=== PATIENT | female | born 1995 | race Caucasian/White ===

== ENCOUNTER 2019-05-22 06:57 | Emergency (ER) | payer OTHER ==
--- NOTE | 2019-05-22 07:10 | ED ---
GI/ HPI - HPI Summary HPI Summary: 23-year-old female with no significant past medical history LMP "mid April and regular" not on control and is sexually active with no new partners presents to the emergency department today complaining of vaginal bleeding which she attributes to a "cut in my vagina from intercourse". She states she believes this clot arose from intercourse approximately 3 days ago and associated with abdominal pain and vaginal bleeding which began yesterday. Patient states she was "spotting" yesterday and then woke up this morning with a larger amount of blood on her bed sheets. It is noted in triage note that patient endorsed loss of feeling to her seeing calves however patient denies this at this time. Patient otherwise feels well and denies fever, chest pain, shortness of breath, pain with urination, increased frequency, increased urgency , rash. Patient denies past medical history of ovarian cysts or torsion, PID. Family history and surgical history noncontributory. - History of Current Complaint Chief Complaint: EDVaginalBleeding Time Seen by Provider: 05/22/19 07:09 Stated Complaint: LAC PER PT Hx Obtained From: Patient Hx Last Menstrual Period: 01/18/16 Onset/Duration: Started Days Ago Timing: Constant Severity: Moderate Current Severity: Moderate Vaginal Bleeding Description: Bright Red Pain Intensity: 10 Location of Pain: Suprapubic Additional Location for Females: Vulva Pain Characteristics: Tearing, Burning Associated Signs and Symptoms: Positive: Dyspureunia. Negative: Hematemesis, Back Pain, Pallor, Weakness, Syncope, External Hemorrhoid, Abdominal Pain, New Sexual Partner, Pale, UTI Symptoms Additional Signs & Symptoms: Positive: Genital Blisters, Vaginal Bleeding Aggravating Factor(s): Movement, Movement, Activity Alleviating Factor(s): Rest - Allergy/Home Medications Allergies/Adverse Reactions: Allergies Allergy/AdvReac Type Severity Reaction Status Date / Time No Known Allergies Allergy Verified 05/22/19 07:01 Home Medications: Home Medications NK [No Home Medications Reported] 05/22/19 [History Confirmed 05/22/19] PMH/Surg Hx/FS Hx/Imm Hx Endocrine/Hematology History: Denies: Hx Anticoagulant Therapy, Hx Blood Disorders, Hx Diabetes Cardiovascular History: Denies: Hx Angina Infectious Disease History: No Infectious Disease History: Denies: Traveled Outside the [place] in Last 30 Days - Family History Known Family History: Positive: None Family History: no known cardio-vascular issues in patient lineage - Social History Alcohol Use: None Substance Use Type: Reports: None Smoking Status (MU): Never Smoked Tobacco Review of Systems Constitutional: Negative Eyes: Negative ENT: Negative Cardiovascular: Negative Respiratory: Negative Positive: Abdominal Pain. Negative: Vomiting, Diarrhea, Nausea Positive: pain Musculoskeletal: Negative Positive: Rash Neurological: Negative Psychological: Normal All Other Systems Reviewed And Are Negative: Yes Physical Exam - Summary Physical Exam Summary: Inspection of the abdomen revealed no ecchymosis or tenderness with palpation. There is no peritoneal signs or guarding. Speculum exam was done with monik Sheldon RN. Inspection of the external genitalia shows ulceration without bleeding or discharge near the inferior aspect of the vulva with 2 small 3 mm in diameter ulcers midway up the labia. There is no evidence of vaginal wall laceration with speculum exam or cervical motion tenderness. There is considerable blood noted in the vaginal canal which appears to be coming from the cervix. During examination gonorrhea and chlamydia swabs were taken for testing. Patient tolerated the exam well without significant pain or tenderness. Triage Information Reviewed: Yes Vital Signs On Initial Exam: Initial Vitals Temp Pulse Resp BP Pulse Ox 98.4 F 106 20 141/78 98 05/22/19 06:58 05/22/19 06:58 05/22/19 06:58 05/22/19 06:58 05/22/19 06:58 Vital Signs Reviewed: Yes Appearance: Positive: Well-Appearing, No Pain Distress, Well-Nourished Skin: Positive: Warm, Skin Color Reflects Adequate Perfusion Eyes: Positive: EOMI, GIULIANA, Conjunctiva Clear ENT: Positive: Hearing grossly normal Respiratory/Lung Sounds: Positive: Clear to Auscultation, Breath Sounds Present Cardiovascular: Positive: RRR, S1, S2 Abdomen Description: Positive: Soft, Distended, Guarding Bowel Sounds: Positive: Present Pelvic Exam: Positive: No Cerv. Motion Tender, Active Bleeding, Blood, Lesions, Ulcers. Negative: Cervicitis, Discharge, Mass, Tender w/ Cervical Motion, Tender Adnexa, Tender Uterus Musculoskeletal: Positive: Strength/ROM Intact Neurological: Positive: Sensory/Motor Intact, Alert, Oriented to Person Place, Time, Normal Gait, Speech Normal Psychiatric: Positive: Normal, Affect/Mood Appropriate AVPU Assessment: Alert Procedures - Sedation Patient Received Moderate/Deep Sedation with Procedure: No Diagnostics - Vital Signs Vital Signs Temp Pulse Resp BP Pulse Ox 05/22/19 06:58 98.4 F 106 20 141/78 98 - Laboratory Result Diagrams: 05/22/19 07:31 05/22/19 07:31 Lab Statement: Any lab studies that have been ordered have been reviewed, and results considered in the medical decision making process. GIGU Course/Dx - Course Course Of Treatment: Patient was evaluated in the emergency department today for vaginal bleeding. Patient's exam her vitals are stable and she is afebrile with no evidence of hypovolemia. Pelvic exam chaperoned by ZAYDA Sheldon. And showed bleeding source to be from the uterus with no evidence of vaginal wall laceration. There was evidence of genital herpes on the labia during exam. Laboratory studies returned showing no evidence of anemia and no . Transvaginal ultrasound was done to evaluate ovarian pathology and returned within normal limits. Patient is likely experiencing menorrhagia. Patient was offered short course of control to decrease bleeding as well as acyclovir for possible genital herpes but declined both. Patient is to follow-up with her SECURITY POLICE OFFICER in 1-2 days for further evaluation. Patient discharged with outpatient follow-up. - Diagnoses Differential Diagnoses - Female: Cervicitis, Ectopic , Herpes Simplex, Ovarian Cyst, Ovarian Torsion, Pelvic Inflammatory Disease, Placenta Abruption, Placenta Previa, Threatened , Vaginitis Provider Diagnoses: Vaginal bleeding Discharge ED - Sign-Out/Discharge Documenting (check all that apply): Patient Departure - Discharge Plan Condition: Stable Disposition: HOME Patient Education Materials: Dysfunctional Uterine Bleeding (ED), Genital Herpes Simplex (ED) Referrals: Elsie Thomas MD [Medical Doctor] - 2 Days Non Staff,Doctor [Medical Doctor] - Additional Instructions: You were seen in the emergency department for vaginal bleeding and possible vaginal herpes. Please expect vaginal bleeding as this period resolves. Please return to the emergency department if you develop any new or worsening symptoms including a fever over 101, bleeding more than 1 pad an hour. Follow up with your OBGYN in 2 days for further evaluation and management. These is a possibility that you also have genital herpes, please follow up with your OBGYN for further evaluation for this problem as well. You are offered antiviral medication for this problem however you declined. You were also offered a short course course of control to decrease the bleeding however you declined this as well. Until this is evaluated further please refrain form sexual intercourse. - Billing Disposition and Condition Condition: STABLE Disposition: Home
[2019-05-22 07:52] LABS: ABS Eosinophils 0.1 10^3/ul (0-0.6); ABS Lymphocytes 0.8 10^3/ul (1.0-4.8); ABS Monocytes 0.9 10^3/ul (0-0.8); ABS Neutrophils 6.7 10^3/ul (1.5-7.7); Eosinophil % 0.7 %; Hematocrit 38 % (35-47); Hemoglobin 12.7 g/dL (12.0-16.0); Mean Corpuscular HGB Conc 34 g/dL (31-36); Mean Corpuscular Hemoglobin 29 pg (27-31); Mean Corpuscular Volume 85 fL (80-97); Platelet Count 176 10^3/uL (150-450); Red Blood Count 4.41 10^6 /uL (3.70-4.87); Red Cell Distribution Width 14 % (10-15); White Blood Count 8.5 10^3/uL (3.5-10.8)
[2019-05-22 07:54] LABS: Albumin 4.7 g/dL (3.2-5.2); Anion Gap 8 mmol/L (2-11); CO2 Carbon Dioxide 24 mmol/L (22-32); Calcium 9.4 mg/dL (8.6-10.3); Chloride 105 mmol/L (101-111); Potassium 3.7 mmol/L (3.5-5.0); Sodium 137 mmol/L (135-145)
[2019-05-22 08:00] LABS: ALT 9 U/L (7-52); AST 15 U/L (13-39); Albumin/Globulin Ratio 1.6 (1-3); Alkaline Phosphatase 38 U/L (34-104); BUN/Creatinine Ratio 10.3 (8-20); Blood Urea Nitrogen 9 mg/dL (6-24); EGFR African American 97.6 (>60); EGFR Non-African American 80.7 (>60); Globulin 2.9 g/dL (2-4); Glucose 96 mg/dL (70-100); Total Protein 7.6 g/dL (6.4-8.9)
[2019-05-22 08:06] LABS: HCG Pregnancy < 0.60 mIU/mL
[2019-05-22 08:35] LABS: HIV 4th Generation Nonreactive (Nonreactive)
[2019-05-22 08:38] LABS: Urine Appearance Cloudy; Urine Bilirubin Negative (Negative); Urine Blood 3+ (Negative); Urine Color Amber; Urine Glucose Negative (Negative); Urine Ketones Negative (Negative); Urine Nitrite Negative (Negative); Urine Protein 2+(100 mg/dL) (Negative); Urine Specific Gravity 1.026 (1.010-1.030); Urine Urobilinogen Negative (Negative)
[2019-05-22 08:40] LABS: Urine Bacteria Absent (Absent); Urine Red Blood Cell 3+(>10/hpf) (Absent); Urine Squamous Epithelial Cell Present (Absent); Urine White Blood Cell 1+(6-10/hpf) (Absent)
[2019-05-22 09:51] VITALS: BP 138/71
[2019-05-22 14:32] LABS: Chlamydia trachomatis NAA Negative (Negative); Neisseria gonorrhoeae (GC) NAA Negative (Negative)
== END 2019-05-22 09:50 | disposition home or self-care (01) ==
LOC: ED 06:57
DX: N93.9 Abnormal uterine and vaginal bleeding, unspecified (principal)
CPT/HCPCS: 36415; 76830; 80053; 81003; 81015; 84702; 85025; 87086; 87389; 87491; 87591; 99282

== ENCOUNTER 2019-05-22 10:05 | Emergency (ER) | payer OTHER ==
[2019-05-22 13:42] VITALS: BP 137/65
--- NOTE | 2019-05-22 13:46 | UC ---
Complaint Female HPI - HPI Summary HPI Summary: 23 yo woman, comes for assessment after an ER visit this morning for heavy menstrual flow. Concerned due to suspicion of genital herpes, with sore blisters on the posterior perineum for the past 2 days, following a burning pain several days prior. No fever. Not using contraception. New partner about 2 weeks ago with unprotected intercourse. No past hx of genital herpes. - History Of Current Complaint Chief Complaint: UCGU Stated Complaint: PERSONAL Time Seen by Provider: 05/22/19 13:46 Hx Obtained From: Patient Hx Last Menstrual Period: 05/22/19 Onset/Duration: Gradual Onset, Lasting Days - 2-3 Timing: Constant Severity Initially: Moderate Severity Currently: Moderate Pain Intensity: 9 Character: Burning Alleviating Factor(s): Position Associated Signs And Symptoms: Positive: Vaginal Bleeding/Discharge - evaluated in the ER this morning.. Negative: Fever, Back Pain - Allergies/Home Medications Allergies/Adverse Reactions: Allergies Allergy/AdvReac Type Severity Reaction Status Date / Time No Known Allergies Allergy Verified 05/22/19 07:01 PMH/Surg Hx/FS Hx/Imm Hx Previously Healthy: Yes Other History Of: Negative For: Anticoagulant Therapy - Surgical History Surgical History: None - Family History Known Family History: Positive: None, Non-Contributory Family History: no known cardio-vascular issues in patient lineage - Social History Occupation: Employed Full-time Lives: Alone Alcohol Use: Weekly Substance Use Type: Marijuana Smoking Status (MU): Never Smoked Tobacco Review of Systems All Other Systems Reviewed And Are Negative: Yes Constitutional: Positive: Negative Skin: Positive: Rash Eyes: Positive: Negative ENT: Positive: Negative Respiratory: Positive: Negative Cardiovascular: Positive: Negative Gastrointestinal: Positive: Negative Genitourinary: Positive: Vaginal/Penile Pain, Ulceration/Lesion, Abnormal Bleeding - currently bleeding, uterus normal on USS today. Motor: Positive: Negative Neurovascular: Positive: Negative Musculoskeletal: Positive: Negative Neurological: Positive: Negative Psychological: Positive: Negative Is Patient Immunocompromised?: No Physical Exam Triage Information Reviewed: Yes Appearance: Well-Appearing, Pain Distress - moderate Vital Signs: Initial Vital Signs Temp 99.1 F 05/22/19 13:33 Pulse 88 05/22/19 13:33 Resp 18 05/22/19 13:33 BP 137/65 05/22/19 13:33 Pulse Ox 98 05/22/19 13:33 Eye Exam: Normal ENT: Positive: Pharynx normal Respiratory: Positive: Lungs clear Cardiovascular: Positive: RRR, No Murmur Abdomen Description: Positive: Nontender, No Organomegaly Pelvic Exam: Positive: Other - posterior fourchette on the left side with 2 clusters of vesicles suggestive of herpes infection. Musculoskeletal Exam: Normal Neurological Exam: Normal Psychological Exam: Normal Skin: Positive: Significant Lesion(s) - posterior perineum Complaint Female Dx - Course Course Of Treatment: valacyclovir for genital herpes by clinical dx. Discussed pain control. She was advised against ibuprofen today due to uterine bleeding, but she does not have a hx of blood dyscrasia and to the best of my knonwledge nsaid's typically do not worsen uterine bleeding. lidocaine gel topically. - Differential Dx/Diagnosis Differential Diagnosis/HQI/PQRI: Cervicitis, Urinary Tract Infection, Other - genital herpes Provider Diagnosis: Genital herpes Discharge ED - Sign-Out/Discharge Documenting (check all that apply): Patient Departure All imaging exams completed and their final reports reviewed: No Studies - Discharge Plan Condition: Stable Disposition: HOME Prescriptions: Lidocaine 2% JELLY* 1 applic TOPICAL Q4H PRN #30 g PRN Reason: Pain - Moderate ValACYclovir (*) [Valtrex 1 GM(*)] 1 gm PO BID #14 tab Forms: *Work Release Referrals: No Primary Care Phys,NOPCP [Primary Care Provider] - Additional Instructions: Swab has been sent for herpes identification because the blistering rash which you have is consistent with this diagnosis. Please abstain from intercourse until the blisters are resolved. Culture report will be available in 2 to 3 days. We generally call the result, but you can call on Monday if you have not had a call. Please begin an antiviral to help to shorten the course of the rash. Use acetaminophen for pain taking up to 3 grams per day (650mg every 4 hours). After flushing and drying the perineum, you can apply lidocaine gel to help to relieve the pain. Follow up with [facility] to discuss control options. - Billing Disposition and Condition Condition: STABLE Disposition: Home
[2019-05-24 15:19] LABS: Herpes Source VULVA
--- NOTE | 2019-05-25 07:58 | UC ---
- Progress Note Progress Note: please call the pt. with + HSV 1 of the genital area cont. with Valtrax , Course/Dx - Diagnoses Provider Diagnoses: Genital herpes Discharge ED - Sign-Out/Discharge Documenting (check all that apply): Patient Departure All imaging exams completed and their final reports reviewed: No Studies - Discharge Plan Condition: Stable Disposition: HOME Prescriptions: Lidocaine 2% JELLY* 1 applic TOPICAL Q4H PRN #30 g PRN Reason: Pain - Moderate ValACYclovir (*) [Valtrex 1 GM(*)] 1 gm PO BID #14 tab Patient Education Materials: Genital Herpes Simplex (ED) Forms: *Work Release Referrals: No Primary Care Phys,NOPCP [Primary Care Provider] - Additional Instructions: Swab has been sent for herpes identification because the blistering rash which you have is consistent with this diagnosis. Please abstain from intercourse until the blisters are resolved. Culture report will be available in 2 to 3 days. We generally call the result, but you can call on Monday if you have not had a call. Please begin an antiviral to help to shorten the course of the rash. Use acetaminophen for pain taking up to 3 grams per day (650mg every 4 hours). After flushing and drying the perineum, you can apply lidocaine gel to help to relieve the pain. Follow up with [facility] to discuss control options. - Billing Disposition and Condition Condition: STABLE Disposition: Home
== END 2019-05-22 14:45 | disposition home or self-care (01) ==
LOC: UCEAST 10:05
DX: A60.00 Herpesviral infection of urogenital system, unspecified (principal)
CPT/HCPCS: 87529; 99212; G0463

== ENCOUNTER 2019-07-13 08:11 | Emergency (ER) | payer OTHER ==
--- OUTSIDE RECORDS SUMMARY | 2019-07-13 08:17 | XMS REPORT | Continuity of Care Document ---
:1995 External Reference #:[id number] Author Name Will Gutierrez M.D. Address [address] [place] [id number] Problems Description No Information Available Social History Type Date Description Comments Sex Unknown Recreational Drug Use MJ 2xwk Exercise Type/Frequency Exercises regularly Allergies, Adverse Reactions, Alerts Description No Known Drug Allergies Medications Active Medications SIG Qnty Indications Ordering Provider Date Nuvaring insert as 3units Will Gutierrez, 06/04/2019 directed MValencia 0.12-0.015mg/24HR Ring History Medications No Active Medications Will Gutierrez M.D. 06/04/2019 - 06/04/2019 Medications Administered in Office Medication SIG Qnty Indications Ordering Provider Date PT SCRN Tbco Id as Non User Will Gutierrez M.D. 06/04/2019 Injection Immunizations Description No Information Available Vital Signs Date Vital Result Comment 06/04/2019 2:00pm BP Systolic 112 mmHg BP Diastolic 72 mmHg Height 66 inches 5'6" Weight 146.00 lb BMI (Body Mass Index) 23.6 kg/m2 Last Menstrual Period [id number] Results Test Acquired Date Facility Test Result H/L Range Note Laboratory test 06/04/2019 [facility] Gardnerella/Y <pending> [place] [address] east: Vaginal [phone] Dna Procedures Description No Information Available Medical Devices Description No Information Available Encounters Type Date Location Provider Dx Diagnosis Office Visit 06/04/2019 [facility] Will Gutierrez, A60.04 Herpesviral 2:00p M.D. vulvovaginitis N76.0 Acute vaginitis Z30.8 Encounter for other contraceptive management Assessments Date Code Description Provider 06/04/2019 A60.04 Herpesviral vulvovaginitis Will Gutierrez M.D. 06/04/2019 N76.0 Acute vaginitis Will Gutierrez M.D. 06/04/2019 Z30.8 Encounter for other contraceptive management Will Gutierrez M.D. Plan of Treatment 06/04/2019 - Will Gutierrez M.D.A60.04 Herpesviral vulvovaginitisComments:pt and i had along discussio regarding safe sex and hsv type 1 . discussed natural history and [id number] Acute vaginitisComments:affirm done todayFollow up :Followup:. (Follow up)Follow up PRNZ30.8 Encounter for other contraceptive managementComments:discussed nuvaring as a good option as she generally had no side effects but had trouble with compliance.discussed nexplanon and iudcontinue condom use Functional Status Description No Information Available Mental Status Description No Information Available Referrals Description No Information Available
[2019-07-13 08:20] VITALS: BP 108/69
--- NOTE | 2019-07-13 09:36 | UC ---
Complaint Female HPI - HPI Summary HPI Summary: 23-year-old woman comes in with a chief complaint of abnormal vaginal discharge. One month ago patient had genital herpes outbreak and also had positive Gardnerella. She was treated for both of those. Her last menses finished approximately 4 days ago. To 3 days ago she noticed some vaginal discharge that was abnormal for her with some smell to it. She continued to have some discharge but it's less now than before. Her partner has been having burning with urination. Denies any vaginal pain or rash. No burning with urination. - History Of Current Complaint Chief Complaint: UCGU Stated Complaint: PERSONAL Time Seen by Provider: 07/13/19 09:23 Hx Last Menstrual Period: 07/01/19 Pain Intensity: 0 - Allergies/Home Medications Allergies/Adverse Reactions: Allergies Allergy/AdvReac Type Severity Reaction Status Date / Time No Known Allergies Allergy Verified 07/13/19 08:20 Home Medications: Home Medications metroNIDAZOLE [Flagyl] 500 mg PO BID #14 tablet 07/13/19 [Rx] PMH/Surg Hx/FS Hx/Imm Hx Previously Healthy: Yes Other History Of: Negative For: Anticoagulant Therapy - Surgical History Surgical History: Yes Surgery Procedure, Year, and Place: oral - Family History Known Family History: Positive: None, Non-Contributory Family History: no known cardio-vascular issues in patient lineage - Social History Alcohol Use: Occasionally Substance Use Type: Marijuana Smoking Status (MU): Never Smoked Tobacco Review of Systems All Other Systems Reviewed And Are Negative: Yes Constitutional: Positive: Negative Skin: Positive: Negative Eyes: Positive: Negative ENT: Positive: Negative Respiratory: Positive: Negative Cardiovascular: Positive: Negative Gastrointestinal: Positive: Negative Genitourinary: Positive: Vaginal/Penile Discharge Motor: Positive: Negative Neurovascular: Positive: Negative Musculoskeletal: Positive: Negative Neurological/Mental Status: Positive: Negative Psychological: Positive: Negative Is Patient Immunocompromised?: No Physical Exam Triage Information Reviewed: Yes Appearance: Well-Appearing, No Pain Distress, Well-Nourished Vital Signs: Initial Vital Signs Temp 98 F 07/13/19 08:17 Pulse 67 07/13/19 08:17 Resp 17 07/13/19 08:17 BP 108/69 07/13/19 08:17 Pulse Ox 100 07/13/19 08:17 Vital Signs Reviewed: Yes Eye Exam: Normal Eyes: Positive: Conjunctiva Clear Neck: Positive: Supple Respiratory: Positive: Lungs clear, Normal breath sounds, No respiratory distress Cardiovascular: Positive: RRR Abdomen Description: Negative: CVA Tenderness (R), CVA Tenderness (L) Bowel Sounds: Positive: Present Pelvic Exam: Positive: External Exam Normal, No Cerv. Motion Tender, Discharge - Clear shane secretions with mild odor. Musculoskeletal: Positive: Strength Intact, ROM Intact Neurological: Positive: Alert, Muscle Tone Normal Psychological: Positive: Age Appropriate Behavior Skin Exam: Normal Complaint Female Dx - Course Course Of Treatment: Given findings of examination most likely this is bacterial vaginosis. To treat the patient with the Flagyl. Follow-up with her GARMENT INSPECTOR or here if not improving or worse. Gonorrhea chlamydia and the affirm results are all pending. - Differential Dx/Diagnosis Provider Diagnosis: Vaginal discharge Discharge ED - Sign-Out/Discharge Documenting (check all that apply): Patient Departure All imaging exams completed and their final reports reviewed: No Studies - Discharge Plan Condition: Stable Disposition: HOME Prescriptions: metroNIDAZOLE [Flagyl] 500 mg PO BID #14 tablet Patient Education Materials: Vaginal Discharge (ED), Bacterial Vaginosis (ED) Referrals: Will Gutierrez MD [Medical Doctor] - Additional Instructions: FOLLOW UP WITH YOUR OBGYN IF NOT COMPLETELY IMPROVED. GET REEVALUATED SOONER IF NOT IMPROVED OR WORSE OR ANY QUESTIONS OR CONCERNS. - Billing Disposition and Condition Condition: STABLE Disposition: Home
[2019-07-15 15:07] LABS: Chlamydia trachomatis NAA Negative (Negative); Neisseria gonorrhoeae (GC) NAA Negative (Negative)
--- NOTE | 2019-07-15 19:06 | UC ---
- Progress Note Progress Note: Vaginal DNA from July 13, 2019 comes back positive Gardnerella, negative Tori, negative Trichomonas, negative gonorrhea negative Chlamydia, Patient was started on Flagyl 500 mg by mouth twice a day for 7 days which is the appropriate treatment for Gardnerella. Nursing to call patient inform patient of the results and that she is being treated appropriately and for her to follow up with her LANDSCAPE ARCHITECT AND PLANNER or primary care physician. Course/Dx - Diagnoses Provider Diagnoses: Vaginal discharge Discharge ED - Sign-Out/Discharge Documenting (check all that apply): Patient Departure All imaging exams completed and their final reports reviewed: No Studies - Discharge Plan Condition: Stable Disposition: HOME Prescriptions: metroNIDAZOLE [Flagyl] 500 mg PO BID #14 tablet Patient Education Materials: Bacterial Vaginosis (ED), Vaginal Discharge (ED) Referrals: Will Gutierrez MD [Medical Doctor] - Additional Instructions: FOLLOW UP WITH YOUR OBGYN IF NOT COMPLETELY IMPROVED. GET REEVALUATED SOONER IF NOT IMPROVED OR WORSE OR ANY QUESTIONS OR CONCERNS. - Billing Disposition and Condition Condition: STABLE Disposition: Home
== END 2019-07-13 10:11 | disposition home or self-care (01) ==
LOC: UCEAST 08:11
DX: N89.8 Other specified noninflammatory disorders of vagina (principal); B96.89 Other specified bacterial agents as the cause of diseases classified elsewhere
CPT/HCPCS: 81003; 84702; 87480; 87491; 87510; 87591; 87660; 99212; G0463